=== PATIENT | female | born 1980 | race Caucasian/White ===

== ENCOUNTER 2017-04-25 19:20 | Inpatient (IN) | payer OTHER ==
[2017-04-25] MEDS: LACTATED RINGERS SOLUTION 1,000 ML IV SCH (20:30)
[2017-04-25 20:39] VITALS: BMI 38.7
[2017-04-25] MEDS ORDERED: DINOPROSTONE 10 MG VAGINAL SUPPOSITORY VG ONE ×2 (20:45→22:20)
[2017-04-25 21:13] LABS: BASO % 0.3 % (0-2.0); EOS % 1.5 % (0-4.5); HEMATOCRIT 36.3 % (32.4-45.2); HEMOGLOBIN 11.8 GM/dL (10.7-15.3); LYMPH % 18.5 % (8-40); MCH 27.5 pg (25.7-33.7); MCHC 32.5 g/dl (32.0-36.0); MEAN CELL VOLUME 84.5 fl (80-96); MEAN PLT VOLUME 9.8 fl (7.5-11.1); MONO % 7.8 % (3.8-10.2); NEUT % 71.9 % (42.8-82.8); PLATELET COUNT 229 K/MM3 (134-434); RDW 13.3 % (11.6-15.6); WHITE BLOOD COUNT 9.3 K/mm3 (4.0-10.0)
[2017-04-25 21:27] LABS: INR 0.93 (0.82-1.09); PROTHROMBIN TIME (PATIENT) 10.5 SEC (9.98-11.88)
[2017-04-25 21:29] LABS: ACTIVATED PTT 27.3 SECONDS (26.9-34.4)
[2017-04-25 21:39] LABS: ANION GAP 11 (8-16); BLOOD UREA NITROGEN 8 mg/dL (7-18); CALCIUM 8.2 mg/dL (8.5-10.1); CHLORIDE 109 mmol/L (98-107); CO2 21 mmol/L (21-32); CREATININE 0.7 mg/dL (0.55-1.02); GLUCOSE,RANDOM 76 mg/dL (74-106); POTASSIUM 4.1 mmol/L (3.5-5.1); SODIUM 141 mmol/L (136-145)
--- NOTE | 2017-04-25 21:55 | HP ---
Past Medical History - Primary Care Physician PCP:: Lazaro Lr - Admission Chief Complaint: 37yo P0 with at EGA 40w2d admitted for labor induction. History of Present Illness: complicated by: postterm gestation AMA Maternal obesity History Source: Patient, Medical Record Limitations to Obtaining History: No Limitations - Past Medical History CARD PUNCHER: No: Alzheimer's, CVA, Dementia, Migraine, Multiple Sclerosis, Peripheral Neuropathy, Parkinson's, Seizure, Syncope, TIA, Vertigo, Other Cardiovascular: No: AFIB, Aneurysm, Aortic Insufficiency, Aortic Stenosis, CAD, CHF, Deep Vein Thrombosis, HTN, Hyperlipdemia, NE, Mitral Insufficiency, Mitral Stenosis, Murmur, Pulmonary Hypertension, Other Pulmonary: No: Asthma, Bronchitis, Cancer, COPD, O2 Dependent, Pneumonia, Previously Intubated, Pulmonary Embolus, Pulmonary Fibrosis, Sleep Apnea, Other Gastrointestinal: No: Ascites, Cancer, Constipation, Crohn's Disease, Diverticulitis, Diverticulosis, Esophageal Varices, Gastritis, GERD, GI Bleed, Hemorrhoids, Hiatal Hernia, Inflamatory Bowel Disease, Irritable Bowel Disease, Pancreatitis, Peptic Ulcer Disease, Ulcerative Colitis, Other Hepatobiliary: No: Cirrhosis, Cholelithiasis, Cholecystitis, Choledocholithiasis , Hepatitis A, Hepatitis B, Hepatitis C, Other Renal/: No: Renal Failure, Renal Inusuff, BPH, Cancer, Hematuria, Hemodialysis , Neurogenic Bladder, Renal Calculi, UTI, Other ...: 2 ...Para: 0 ...Term: 0 ...: 0 ...Spon : 0 ...Induced : 1 ...Multiple Gestation: 0 ...LMP: 07/27/16 ... Weeks Gestation by Dates: 40.2 ...EDC by Dates: 04/23/17 ...EDC by Sono: 04/23/17 Heme/Onc: No: Anemia, B12 Deficiency, Bleeding Disorder, Cancer, Current Chemotherapy, Current Radiation Therapy, Hemochromatosis, Hypercoaguable State, Myeloproliferative Synd, Sickle Cell Disease, Sickle Cell Trait, Thrombocytopenia, Other Infectious Disease: No: AIDS, C-Diff, Herpes Zoster, HIV, MRSA, STD's, Tuberculosis, VREF, Other Psych: No: Addictions, Anxiety, Bipolar, Depression, Panic, Psychosis, Schizophrenia, Other Musculoskeletal: No: Bursitis, Chronic low back pain, Hemiparesis, Hemiplegia, Osteoarthritis, Paraplegia, Other Rheumatology: No: Fibromyalgia, Gout, Lupus, Rheumatoid Arthritis, Sarcoidosis, Vasculitis, Other ENT: No: Allergic Rhinitis, Sinusitis, Other Endocrine: No: Fabiano's Disease, Richland's Disease, Diabetes Insipidus, Diabetes Mellitus, Hyperparathyroidism, Hyperthyroidism, Hypothyroidism, Osteopenia, SIADH, Other Dermatology: No: Basal Cell, Cellulitis, Eczema, Melanoma, Psoriasis, Squamous Cell, Other - Past Surgical History Past Surgical History: Yes: None Hx Myomectomy: No Hx Transabdominal Cerclage: No - Smoking History Smoking history: Never smoked Have you smoked in the past 12 months: No - Alcohol/Substance Use Hx Alcohol Use: No History of Substance Use: reports: None - Social History Usual Living Arrangement: Yes: With Significant Other ADL: Independent History of Recent Travel: No Home Medications - Allergies Allergies/Adverse Reactions: Allergies Allergy/AdvReac Type Severity Reaction Status Date / Time No Known Allergies Allergy Verified 04/21/17 14:53 - Home Medications Home Medications: Ambulatory Orders Vitamins (Sjr) - 1 tab PO DAILY 04/04/17 Family Disease History - Family Disease History Family History: Unremarkable Review of Systems Findings/Remarks: Well Appearing - Review of Systems Constitutional: reports: No Symptoms Eyes: reports: No Symptoms HENT: reports: No Symptoms Neck: reports: No Symptoms Cardiovascular: reports: No Symptoms Respiratory: reports: No Symptoms Gastrointestinal: reports: No Symptoms Genitourinary: reports: No Symptoms Breasts: reports: No Symptoms Reported Musculoskeletal: reports: No Symptoms Integumentary: reports: No Symptoms Neurological: reports: No Symptoms Endocrine: reports: No Symptoms Hematology/Lymphatic: reports: No Symptoms Psychiatric: reports: No Symptoms Pain Intensity: 0 Physical Exam - Maternity Vital Signs: Vital Signs Temperature 98.0 F 04/25/17 20:20 Pulse Rate 72 04/25/17 20:20 Respiratory Rate 18 04/25/17 20:20 Blood Pressure 121/68 04/25/17 20:20 O2 Sat by Pulse Oximetry (%) Constitutional: Yes: No Distress, Calm, Obese Eyes: Yes: WNL, Conjunctiva Clear HENT: Yes: WNL, Atraumatic, Normocephalic Neck: Yes: WNL, Supple, Trachea Midline Cardiovascular: Yes: WNL, Regular Rate and Rhythm Lungs: Clear to auscultation, Normal air movement - Abdominal Exam/OB Fundal Height: 41 Number of Fetuses: Single Presentation: Vertex Contractions: Yes Regularity: Irregular Intensity: Unaware Monitor Mode: External Heart Rate (range): 135 Heart Rate Location: Midline Category: I Accelerations: Non-Uniform Decelerations: None - Vaginal Exam/OB Vaginal Bleediing: No Speculum Exam: No Dilatation (cm): 1 Effacement (%): 50 Amniotic Membrane Status: Intact Presentation: Vertex/Position Station: -4 (Adequate Gynecoid Pelvimetry) - Physical Exam Musculoskeletal: Yes: WNL Extremities: Yes: WNL Edema: Yes Edema: LLE: Trace, RLE: Trace Integumentary: Yes: WNL Deep Tendon Reflex Grade: Normal +2 ...Motor Strength: WNL Psychiatric: Yes: WNL, Alert, Oriented - Labs Lab Results: CBC, BMP 04/25/17 20:20 Hemorrhage Risk Assessment - Risk Factors Medium Risk Factors: Yes: Obesity (BMI >40) High Risk Factors: Yes: None Risk Score: 1 Risk Level: Medium Risk Imaging - Results Ultrasound: Report Reviewed Assessment/Plan 37yo P0 with at EGA 40w2d admitted for labor induction. Pt is not in labor. Fetus with Category I tracing. Adequate gynecoid pelvimetry on exam. We had land discussion re: risks, benefits, and alternatives of labor induction. I explained the options of expectant management awaiting spontaneous labor, induction of labor, and elective section. The risks of uterine tachysystole, distress, uterine rupture, need for emergency C/S, hemorrhage, infection, scarring, etc. were discussed. We also discussed the risks of meconium aspiration, shoulder dystocia, and anesthesia options. The pt requested to proceed with induction. We discussed the alternative methods of induction with Cervidil, Cytotec, Folley ballon, and pitocin. The pt prefers Cervidil followed by pitocin, if needed.
[2017-04-26] MEDS: LACTATED RINGERS SOLUTION 1,000 ML IV SCH (04:30)
[2017-04-26] MEDS ORDERED: LACTATED RINGERS SOLUTION 1,000 ML IV SCH ×3 (09:00→21:00)
[2017-04-26] MEDS ORDERED: LACTATED RINGERS SOLUTION 1000 ML INFUS.BAG IV ONE (09:41)
[2017-04-26] MEDS ORDERED: OXYTOCIN 15 UNITS/ LR 250 ML 15 UNIT/250 ML INFUS.BAG IVPB ONE (10:59)
[2017-04-26] MEDS: OXYTOCIN 30 UNITS in 0.9% NS 30 UNIT/500 ML INFUS.BAG IVPB SCH (11:00)
--- NOTE | 2017-04-26 14:51 | PN ---
Ante-Partal Exam - Subjective Subjective: Patient reports pain with contractions Vital Signs: Vital Signs Temperature 98.4 F 04/26/17 10:00 Pulse Rate 75 04/26/17 14:00 Respiratory Rate 19 04/26/17 14:00 Blood Pressure 128/69 04/26/17 14:00 O2 Sat by Pulse Oximetry (%) Bleeding: No Headache: No Visual changes: No Right upper quadrant pain: No - Contractions Contractions: Yes Regularity: Regular Intensity: Moderate Monitor Mode: External - Exam during Labor Heart Rate: 140 Variability: Moderate Category: I Monitor Accelerations: Absent Monitor Decelerations: None Exam: Vaginal Dilatation (cm): 3 Effacement (%): 70 Amniotic Membrane Status: Intact Presentation: Vertex Station: -4 - Intrapartum Hemorrhage Risk Medium Risk Factors: None High Risk Factors: None Risk Score: 0 Risk Level: Low Risk - Assessment/Plan Assessment/Plan: 37 yo IOL 1. good cervical change, continue pitocin per protocol 2. GBS negative 3. Declines offer for pain control at this time 4. Will proceed with expectant management
--- NOTE | 2017-04-26 17:22 | PN ---
Ante-Partal Exam - Subjective Subjective: Patient reports pain with contractions, declines offer for pain control Vital Signs: Vital Signs Temperature 98.7 F 04/26/17 15:00 Pulse Rate 79 04/26/17 16:49 Respiratory Rate 18 04/26/17 16:49 Blood Pressure 116/51 04/26/17 16:49 O2 Sat by Pulse Oximetry (%) Bleeding: No Headache: No Visual changes: No Right upper quadrant pain: No - Contractions Contractions: Yes Regularity: Regular Intensity: Moderate Monitor Mode: External - Exam during Labor Heart Rate: 145 Variability: Moderate Category: I Monitor Accelerations: Present Monitor Decelerations: None Exam: Vaginal Dilatation (cm): 3 Effacement (%): 90 Amniotic Membrane Status: Intact Station: -3 - Intrapartum Hemorrhage Risk Medium Risk Factors: None High Risk Factors: None Risk Score: 0 Risk Level: Low Risk - Assessment/Plan Assessment/Plan: 37 yo, induction of labor 1. Effacement of cervix, will continue pitocin, currently at 6 2. GBS negative 3. Category I FHT 4. Declines offer for pain medication, will offer upon patient request
[2017-04-26] MEDS ORDERED: BUTORPHANOL TARTRATE 1 MG/ML VIAL IVPB ONE (19:25)
[2017-04-26] MEDS ORDERED: PROMETHAZINE HCL 25 MG/1 ML VIAL IVPUSH ONE (19:25)
--- NOTE | 2017-04-26 19:28 | PN ---
Ante-Partal Exam - Subjective Subjective: Patient reports pain with contractions Vital Signs: Vital Signs Temperature 98.0 F 04/26/17 18:00 Pulse Rate 70 04/26/17 18:00 Respiratory Rate 20 04/26/17 18:00 Blood Pressure 123/64 04/26/17 18:00 O2 Sat by Pulse Oximetry (%) Bleeding: No Headache: No Visual changes: No Right upper quadrant pain: No - Contractions Contractions: Yes Regularity: Regular Intensity: Moderate Monitor Mode: External - Exam during Labor Heart Rate: 130 Variability: Moderate Category: II Monitor Accelerations: Present Monitor Decelerations: Variable Exam: Vaginal Dilatation (cm): 4 Effacement (%): 80 Amniotic Membrane Status: Ruptured Meconium Staining: Light Presentation: Vertex Station: -3 - Intrapartum Hemorrhage Risk Medium Risk Factors: None High Risk Factors: None Risk Score: 0 Risk Level: Low Risk - Assessment/Plan Assessment/Plan: 37 yo IOL 1. Good cervical change, AROM performed, light mec noted 2. Category II FHT, will place on L lateral and O2 via facemask 3. GBS negative 4. Desires IV medication, will await improvement in FHT 5. Will continue expectant management
[2017-04-26] MEDS ORDERED: PROMETHAZINE HCL 25 MG/1 ML VIAL ONE (19:57)
[2017-04-26] MEDS ORDERED: BUTORPHANOL TARTRATE 1 MG/ML VIAL ONE ×2 (19:57)
[2017-04-26] MEDS ORDERED: LACTATED RINGERS SOLUTION 500 ML IV SCH (20:00)
--- NOTE | 2017-04-26 23:58 | PN ---
Ante-Partal Exam - Subjective Subjective: Patient is comfortable, no complaints Vital Signs: Vital Signs Temperature 98.1 F 04/26/17 22:00 Pulse Rate 74 04/26/17 23:00 Respiratory Rate 20 04/26/17 23:00 Blood Pressure 116/77 04/26/17 23:00 O2 Sat by Pulse Oximetry (%) Bleeding: No Headache: No Visual changes: No Right upper quadrant pain: No - Contractions Contractions: Yes Regularity: Regular Intensity: Moderate Monitor Mode: External - Exam during Labor Heart Rate: 140 Variability: Moderate Category: I Monitor Accelerations: Present Monitor Decelerations: None Exam: Vaginal Dilatation (cm): 4 Effacement (%): 80 Amniotic Membrane Status: Intact Meconium Staining: Light Station: -3 - Intrapartum Hemorrhage Risk Medium Risk Factors: None High Risk Factors: None Risk Score: 0 Risk Level: Low Risk - Assessment/Plan Assessment/Plan: 37 yo induction of labor 1. stable exam, will continue pitocin per protocol 2. GBS negative 3. Category I FHT 4. Declined offer for pain control 5. Will continue expectant management
[2017-04-27] MEDS ORDERED: ELECTROLYTE-148 SOLN 1,000 ML IV SCH (07:00)
[2017-04-27] MEDS: OXYTOCIN 30 UNITS in 0.9% NS 30 UNIT/500 ML INFUS.BAG IVPB SCH (08:00)
[2017-04-27] MEDS ORDERED: FENTANYL/BUPIVACAINE/NS/PF - PCEA - 50 ML DISP.SYRIN EP ONE ×2 (08:14→13:33)
--- NOTE | 2017-04-27 08:21 | PN ---
Ante-Partal Exam - Subjective Subjective: Pain with contractions Vital Signs: Vital Signs Temperature 98.2 F 04/27/17 08:00 Pulse Rate 81 04/27/17 08:00 Respiratory Rate 20 04/27/17 08:00 Blood Pressure 101/49 04/27/17 08:00 O2 Sat by Pulse Oximetry (%) Bleeding: No Headache: No Visual changes: No Right upper quadrant pain: No - Contractions Contractions: Yes Regularity: Regular Intensity: Mod/Strong Monitor Mode: External - Exam during Labor Heart Rate: 155 Variability: Moderate Category: I Monitor Accelerations: Present Monitor Decelerations: None Exam: Vaginal Dilatation (cm): 4 Effacement (%): 80 Amniotic Membrane Status: Ruptured Meconium Staining: Light Station: -3 - Intrapartum Hemorrhage Risk Medium Risk Factors: None High Risk Factors: None Risk Score: 0 Risk Level: Low Risk - Assessment/Plan Assessment/Plan: 37 yo induction of labor 1. Discussed minimal cervical change. Patient currently on pitocin. Desires to continue with induction, declines offer for delivery. 2. Category I FHT 3. GBS negative 4. Desires epidural for pain control. 5. Will continue expectant management
[2017-04-27] MEDS ORDERED: NALOXONE HCL 0.4 MG/ML VIAL IVPUSH PRN (08:56)
[2017-04-27] MEDS ORDERED: FENTANYL/BUPIVACAINE/NS/PF - PCEA - 50 ML DISP.SYRIN EP SCH (09:00)
--- NOTE | 2017-04-27 09:23 | PN ---
Progress Note (short form) - Note Progress Note: Called to patient bedside for recurrent late decelerations after epidural BP 121/76 --> 117/68 --> 100/40 --> 94/44 --> 88/39 --> 75/33 --> 72/31 --> 69/ 36 --> 98/35 --> 93/33 -->91/36 FHT 150 mod harris, + late decel to 80 for 40 seconds, spontaneous resolution to baseline Anesthesia at bedside, s/p ephedrine Patient placed L lateral O2 via facemask BP now 112/42 FH 160s mod variability no decels Will continue to monitor
--- NOTE | 2017-04-27 16:04 | PN ---
Progress Note (short form) - Note Progress Note: cx 3 to 4 cm , with multiple spont decel, good BTB varibility, mec af , advised c/s for failure to dilate. non reassuring FHR
[2017-04-27] MEDS ORDERED: CITRIC ACID/SODIUM CITRATE 30 ML UNIT-DOSE CUP PO ONE (16:15)
[2017-04-27] MEDS ORDERED: PHENYLEPHRINE HCL 10 MG/1 ML SINGLE DOSE VIAL ONE (17:14)
[2017-04-27] MEDS ORDERED: oxyCODONE HCL 5 MG TABLET PO PRN ×2 (17:21)
[2017-04-27] MEDS ORDERED: WITCH HAZEL 50% (TUCKS) 40 PAD/JAR PAD TP PRN (17:21)
[2017-04-27] MEDS ORDERED: BENZOCAINE 28 GM HEMORRHOIDAL OINTMENT PR PRN (17:21)
[2017-04-27] MEDS ORDERED: BENZOCAINE 20% 57 GM BOTTLE TP PRN (17:21)
[2017-04-27] MEDS ORDERED: IBUPROFEN 600 MG TABLET (FP) PO PRN (17:21)
[2017-04-27] MEDS ORDERED: METHYLERGONOVINE MALEATE 0.2 MG/1 ML AMP IM PRN (17:21)
[2017-04-27] MEDS ORDERED: diphenhydrAMINE HCL 25 MG CAPSULE (FP) PO PRN (17:21)
[2017-04-27] MEDS ORDERED: ACETAMINOPHEN 325 MG TABLET (FP) PO PRN (17:23)
[2017-04-27] MEDS ORDERED: ONDANSETRON 4 MG/2 ML VIAL IVPUSH PRN (17:29)
[2017-04-27] MEDS ORDERED: DEXTROSE 5%-LACTATED RINGERS 1,000 ML IV SCH (17:30)
[2017-04-27] MEDS ORDERED: OXYTOCIN 20 UNITS in 0.9% NS 20 UNIT/1,000 ML INFUS.BAG IV SCH (17:30)
[2017-04-27] MEDS ORDERED: OXYTOCIN 20 UNITS in 0.9% NS 20 UNIT/1,000 ML INFUS.BAG IV ONE ×2 (17:34→19:09)
[2017-04-27] MEDS ORDERED: MIDAZOLAM HCL 2 MG/2 ML SINGLE DOSE VIAL ONE ×2 (17:38→17:44)
[2017-04-27 17:59] LABS: ARTERIAL BLOOD GAS PCO2 47.9 mmHg (35-45); ARTERIAL BLOOD GAS pH 7.32 (7.35-7.45)
[2017-04-27] MEDS ORDERED: CEFAZOLIN 1 GM/D5W 1 GM/50 ML BAG IVPB SCH (18:00)
[2017-04-27 18:07] LABS: VENOUS PH 7.38 (7.32-7.42)
[2017-04-27 18:08] LABS: VENOUS PC02 40.9 mmHg (38-52); VENOUS PO2 22.5 mmHg (28-48)
[2017-04-27 18:12] LABS: ARTERIAL BLD GAS O2 SATURATION 6.1 % (90-98.9); ARTERIAL BLOOD GAS PO2 8.7 mmHg (80-100)
[2017-04-27] MEDS: CEFAZOLIN 1 GM PUSH 1 GM/10 ML DISP.SYRIN IVPUSH SCH (19:16)
[2017-04-28] MEDS: CEFAZOLIN 1 GM PUSH 1 GM/10 ML DISP.SYRIN IVPUSH SCH ×2 (02:05→09:23)
[2017-04-28] MEDS: IBUPROFEN 800 MG/8 ML IJ IVPB PRN ×2 (04:27→10:27)
--- NOTE | 2017-04-28 07:52 | PN ---
Progress Note (short form) - Note Progress Note: pod 1 s/p c/s doing well CBC, BMP 04/25/17 20:20 Last Vital Signs Temp Pulse Resp BP Pulse Ox 97.6 F 78 18 118/73 100 04/28/17 05:00 04/28/17 05:00 04/28/17 06:00 04/28/17 05:00 04/27/17 19:15 abdomen soft, no distension, no cva incison dry, clean no calf tenderness no excess vaginal bleeding plan ambulate, cbc, advance diet
[2017-04-28 08:16] LABS: BASO % 0.1 % (0-2.0); EOS % 0.4 % (0-4.5); HEMATOCRIT 32.1 % (32.4-45.2); HEMOGLOBIN 10.3 GM/dL (10.7-15.3); LYMPH % 12.7 % (8-40); MCHC 31.9 g/dl (32.0-36.0); MEAN CELL VOLUME 84.5 fl (80-96); MEAN PLT VOLUME 9.4 fl (7.5-11.1); NEUT % 79.8 % (42.8-82.8); PLATELET COUNT 205 K/MM3 (134-434); RDW 13.6 % (11.6-15.6); WHITE BLOOD COUNT 13.1 K/mm3 (4.0-10.0)
[2017-04-28] MEDS: ENOXAPARIN NA (PORCINE) 40 MG/0.4 ML DISP.SYRIN SQ SCH (09:32)
[2017-04-28] MEDS: PRENATAL VITAMINS W/ FOLIC ACID TABLET (FP) PO SCH (10:25)
--- NOTE | 2017-04-28 10:54 | PN ---
Progress Note (short form) - Note Progress Note: Post op day#1.S/P C Section under spinal epidural anesthesia with duramorph uneventful.Patient stable and c/o little pain for which she is on medication.No any anesthesia related problem.Patient DC from the anesthesia care.
[2017-04-28] MEDS: SIMETHICONE 80 MG TAB.CHEW (FP) PO PRN ×2 (15:08→21:22)
[2017-04-28] MEDS: ACETAMINOPHEN 325 MG TABLET (FP) PO PRN ×2 (15:08→21:21)
[2017-04-28] MEDS: IBUPROFEN 600 MG TABLET (FP) PO PRN ×2 (15:09→21:22)
[2017-04-28] MEDS ORDERED: BISACODYL 10 MG SUPP.RECT RC PRN (17:21)
[2017-04-29] MEDS: IBUPROFEN 600 MG TABLET (FP) PO PRN ×3 (07:57→21:21)
[2017-04-29] MEDS: ACETAMINOPHEN 325 MG TABLET (FP) PO PRN ×3 (07:58→21:21)
[2017-04-29] MEDS: SIMETHICONE 80 MG TAB.CHEW (FP) PO PRN ×3 (07:59→21:21)
[2017-04-29] MEDS: ENOXAPARIN NA (PORCINE) 40 MG/0.4 ML DISP.SYRIN SQ SCH (09:28)
[2017-04-29] MEDS: PRENATAL VITAMINS W/ FOLIC ACID TABLET (FP) PO SCH (09:33)
--- NOTE | 2017-04-29 10:55 | DS ---
Physical Exam-SALES ANALYST Vital Signs: Vital Signs Temperature 97.9 F 04/28/17 21:00 Pulse Rate 90 04/28/17 21:00 Respiratory Rate 20 04/28/17 21:00 Blood Pressure 106/60 04/28/17 21:00 O2 Sat by Pulse Oximetry (%) 100 04/27/17 19:15 Constitutional: Yes: No Distress, Calm, Obese Eyes: Yes: WNL, Conjunctiva Clear HENT: Yes: WNL, Atraumatic, Normocephalic Neck: Yes: WNL, Supple, Trachea Midline Cardiovascular: Yes: WNL, Regular Rate and Rhythm Respiratory: Yes: WNL, Regular, CTA Bilaterally Gastrointestinal: Yes: WNL, Normal Bowel Sounds, Soft, Abdomen, Obese ...Rectal Exam: Yes: Deferred Renal/: Yes: WNL ....Post : Yes: Uterus firm, Uterus non-tender, Uterus boggy, Slight lochia rubra Breast(s): Yes: WNL Musculoskeletal: Yes: WNL Extremities: Yes: WNL Edema: Yes Edema: LLE: Trace, RLE: Trace Integumentary: Yes: WNL Wound/Incision: Yes: Clean/Dry, Well Approximated, Sutures Intact, Steri Strips , Open to air Neurological: Yes: WNL, Alert, Oriented ...Motor Strength: WNL Psychiatric: Yes: WNL, Alert, Oriented Labs: CBC, BMP 04/28/17 06:30 04/25/17 20:20 Delivery - Delivery Section: Primary, Low Flap Transverse Type of Anesthesia: Epidural Episiotomy/Laceration: None EBL (cc): 500 Delivery, Single - Stages of Labor Date 1st Stage Initiatied: 04/27/17 Time 1st Stage Initiated: 01:00 Date of Delivery: 04/27/17 Time of Delivery: 17:37 Time Placenta Delivered: 17:38 Placenta: Yes: Manual Removal, Normal Configuration - Condition of Elementary Tutor/Entry Level Lab Technician Present: Yes Name: Obinna Hawkins Infant Gender: Female Weight: 3.544 kg Position: OP Total Hours ROM (Hrs/Mins): 22hrs/13mins - 1 Minute Total Score: 9 5 Minutes Total Score: 9 - Feeding Plan Initial Plan: Elected not to breastfeed exclusively throughout hospitalization Discharge Summary Reason For Visit: INDUCTION OF LABOR Post term Maternal obesity Arrest of dilation Procedures: Principal: Primary LT C/S Hospital Course: Normal recovery Condition: Good - Instructions Diet, Activity, Other Instructions: Physical activity Resume your normal everyday activity as tolerated no heavy lifting or exercise until seen by your surgeon. You may walk unlimited omer of and climb stairs. You may resume driving the car when you feel safe and comfortable behind the wheel. No sexual activity as instructed. Wound care If you have a bandage, leave it on, and keep dry for 48-72 hours. After that time discard the outer bandage. If they are tapes on the skin under the out of bandage leave them in place. They will peel off in the next 7 to 10 days. Do Not Peel them off. You may shower the day after surgery. If there are tapes present on the skin, you may shower over them. Diet There are no dietary restrictions. Eat healthy, high-fiber foods. Drink 6 to 8 glasses of liquid each day. This will assist in keeping your bowels are regular. Pain management You may take Tylenol or acetaminophen or Ibuprofen (for example, Motrin, Advil etc.) from my pain prescription medication is ordered should be taken as prescribed for moderate to severe pain. Call MD for any of the following: Severe pain not relieved by medication Fever of 101 or higher Excessive bleeding or drainage on dressing Inability to urinate Referrals: Lazaro Lr MD [Staff Physician] - Disposition: HOME - Home Medications Comprehensive Discharge Medication List: Ambulatory Orders Vitamins (Sjr) - 1 tab PO DAILY 04/04/17
[2017-04-29] MEDS ORDERED: SENNOSIDES/DOCUSATE COMBO (SENNA PLUS) TABLET (UD) PO PRN (22:00)
[2017-04-30] MEDS: IBUPROFEN 600 MG TABLET (FP) PO PRN ×2 (05:41→10:13)
[2017-04-30] MEDS: ACETAMINOPHEN 325 MG TABLET (FP) PO PRN ×2 (05:42→10:12)
[2017-04-30] MEDS: SIMETHICONE 80 MG TAB.CHEW (FP) PO PRN ×2 (05:42→10:14)
[2017-04-30 08:04] LABS: BASO % 0.1 % (0-2.0); EOS % 2.3 % (0-4.5); HEMATOCRIT 31.5 % (32.4-45.2); LYMPH % 15.8 % (8-40); MCH 26.8 pg (25.7-33.7); MCHC 31.7 g/dl (32.0-36.0); MEAN CELL VOLUME 84.5 fl (80-96); MEAN PLT VOLUME 8.8 fl (7.5-11.1); MONO % 5.8 % (3.8-10.2); PLATELET COUNT 282 K/MM3 (134-434); RBC 3.73 M/mm3 (3.60-5.2); RDW 13.7 % (11.6-15.6); WHITE BLOOD COUNT 12.9 K/mm3 (4.0-10.0)
--- NOTE | 2017-04-30 08:10 | PN ---
Post Progress Note - Subjective Subjective: No complaints Post Day: 3 Type of Delivery: Primary C/S Vital Signs: Vital Signs Temperature 98.3 F 04/29/17 21:23 Pulse Rate 85 04/29/17 21:23 Respiratory Rate 20 04/29/17 21:23 Blood Pressure 115/67 04/29/17 21:23 O2 Sat by Pulse Oximetry (%) 100 04/27/17 19:15 Breast Exam: Yes: Soft Uterus: Yes: Fundus Firm, Fundus below umbilicus, Non-tender Incision: Yes: Sutures intact Abdomen/GI: Yes: Abdomen soft, Tolerating PO Lochia: Yes: Rubra Lochia, amount: Small Extremities: Yes: Calves non-tender Perineum: Yes: Intact Activity: Ambulating - Labs Labs: CBC WBC 13.1 K/mm3 (4.0-10.0) H D 04/28/17 06:30 RBC 3.80 M/mm3 (3.60-5.2) 04/28/17 06:30 Hgb 10.3 GM/dL (10.7-15.3) L D 04/28/17 06:30 Hct 32.1 % (32.4-45.2) L 04/28/17 06:30 MCV 84.5 fl (80-96) 04/28/17 06:30 MCH 27.0 pg (25.7-33.7) 04/28/17 06:30 MCHC 31.9 g/dl (32.0-36.0) L 04/28/17 06:30 RDW 13.6 % (11.6-15.6) 04/28/17 06:30 Plt Count 205 K/MM3 (134-434) 04/28/17 06:30 MPV 9.4 fl (7.5-11.1) 04/28/17 06:30 Neutrophils % 79.8 % (42.8-82.8) 04/28/17 06:30 Lymphocytes % 12.7 % (8-40) D 04/28/17 06:30 Monocytes % 7.0 % (3.8-10.2) 04/28/17 06:30 Eosinophils % 0.4 % (0-4.5) 04/28/17 06:30 Basophils % 0.1 % (0-2.0) 04/28/17 06:30 Assessment/Plan 37yo P1 POD#3 s/p primary LTC/S doing well, stable, afebrile. Asymptomatic for anemia. Post op care reviewed. Continue routine care. Ambulation encouraged Advance diet as tolerated.
[2017-04-30 09:26] VITALS: BP 120/68; PULSE 69; TEMP 98.2
[2017-04-30] MEDS: ENOXAPARIN NA (PORCINE) 40 MG/0.4 ML DISP.SYRIN SQ SCH (10:12)
[2017-04-30] MEDS: PRENATAL VITAMINS W/ FOLIC ACID TABLET (FP) PO SCH (10:14)
--- NOTE | 2017-05-03 14:10 | PATH ---
Surgical Pathology Report Patient Name: ZANA RAMIREZ Med. Rec. #: [id number] /Age/Gender: 1980 (Age: 37) / F Account: [id number] Location: [facility] OBS/INSTRUMENT OPERATOR Taken: 04/27/2017 Received: 04/28/2017 Reported: 05/03/2017 Physicians: Lazrao Lr M.D. Specimen(s) Received PLACENTA Clinical History , 40.4 weeks Primary failure to progress, nonreassuring heart rate Final Diagnosis PLACENTA, SECTION: 618 G THIRD TRIMESTER PLACENTA WITH TRIVASCULAR UMBILICAL CORD, MEMBRANES WITH MECONIUM LADEN MACROPHAGES AND MODERATE CHORIOAMNIONITIS. Electronically Signed Palak Tobias M.D. Gross Description The specimen is received fresh labeled placenta and is a 618 gram, 19.0 x 15.5 x 3 point cm. placenta with attached membranes and umbilical cord. The attached membranes are dumas green, meconium stained, translucent with focal opacities and insert marginally. The umbilical cord measures 19 cm. in length and averages 1 cm. in diameter. The cord inserts eccentrically, 3.5 cm. to the nearest margin. No true knots or strictures are identified. Cut surface of the umbilical cord reveals 3 vessels. The surface is reyez green, meconium stained with minimal fibrin deposition and appropriate caliber vessels. The maternal surface is red-brown with focal defects. Sectioning reveals red-brown, spongy parenchyma. No lesions are identified. Fur Blower sections are submitted in three cassettes as follows: 1- membrane rolls and umbilical cord; 2-3- full thickness sections of placenta. /05/02/2017 [facility]05/02/2017
== END 2017-04-30 11:45 | disposition home or self-care (01) | DRG 540 ==
LOC: JLDR 19:20 → J3W 04-27 21:23
PROVIDERS: ADMIT Obstetrics & Gynecology; ATTEND Obstetrics & Gynecology
PROC: 10D00Z1 Extraction of Products of Conception, Low, Open Approach (ICD-10-PCS; principal; 2017-04-27)
PROC: 3E0P7VZ Introduction of Hormone into Female Reproductive, Via Natural or Artificial Opening (ICD-10-PCS; 2017-04-27)
DX: O48.0 Post-term pregnancy (principal); O76 Abnormality in fetal heart rate and rhythm complicating labor and delivery; O77.0 Labor and delivery complicated by meconium in amniotic fluid; O62.0 Primary inadequate contractions; O90.81 Anemia of the puerperium; O99.214 Obesity complicating childbirth; E66.8 Other obesity; Z68.38 Body mass index [BMI] 38.0-38.9, adult; Z3A.40 40 weeks gestation of pregnancy; Z37.0 Single live birth
CPT/HCPCS: 36415; 36600; 80048; 82803; 85025; 85610; 85730; 86593; 86850; 86900; 86901